=== PATIENT | male | born 1990 | race Caucasian/White ===

== ENCOUNTER 2019-09-05 09:11 | Emergency (ER) | payer OTHER, MEDICAID ==
[~2019-09-05] VITALS: Ht 172.7 cm; Wt 68.0 kg
[2019-09-05 09:14] VITALS: Ht 172.7 cm; Wt 68.0 kg
[2019-09-05 11:47] VITALS: BP 118/76
== END 2019-09-05 11:47 | disposition home or self-care (01) ==
LOC: ED 09:11
DX: R40.4 Transient alteration of awareness (principal)